=== PATIENT | female | born 1955 | race Caucasian/White ===

== ENCOUNTER 2021-09-20 20:01 | Inpatient (IN) | payer MEDICARE, MEDICAID ==
[2021-09-20] MEDS ORDERED: Labetalol HCl 100 MG/20 ML VIAL ONE (20:20)
[2021-09-20 20:58] LABS: #Basophils 0.1 10x3/uL (0.0-0.2); #Monocytes 1.2 10x3/uL (0.0-1.1); #Neutrophils 8.3 10x3/uL (1.5-8.4); %Basophils 0.7 % (0.0-2.0); %Eosinophils 0.3 % (0.0-6.0); %Lymphocytes 11.2 % (18.0-47.0); %Monocytes 10.7 % (0.0-10.0); %Neutrophils 76.5 % (40.0-75.0); Hemoglobin 12.4 g/dL (12.0-15.5); Mean Corpuscular HGB CONC 33.4 g/dL (32.0-36.0); Mean Corpuscular Hemoglobin 28.7 pg (27.0-33.0); Mean Corpuscular Volume 85.9 fl (81.6-98.3); Mean Platelet Volume 8.8 fl (7.4-10.4); Platelet Count 419 10x3/uL (150-450); RBC Distribution Width 15.7 % (11.5-14.5); Red Blood Cell (RBC) Count 4.32 10x6/uL (3.90-5.03); White Blood Cell (WBC) Count 10.8 10x3/uL (3.5-10.5)
[2021-09-20 21:12] LABS: ALT (SGPT) 52 U/L (8-55); AST (SGOT) 38 U/L (5-34); Albumin 4.2 g/dL (3.4-4.8); Alkaline Phosphatase 86 U/L (40-110); Anion Gap 17 mmol/L (10-20); BUN (Urea Nitrogen) 18 mg/dL (9.8-20.1); Bilirubin, Total 0.2 mg/dL (0.2-1.2); Calc. Creatinine Clearance 0 mL/min (70-130); Calcium 9.1 mg/dL (7.8-10.44); Carbon Dioxide 20 mmol/L (23-31); Chloride 102 mmol/L (98-107); Globulin 3.3 g/dL (2.4-3.5); Glucose 108 mg/dL (80-115); Potassium 3.7 mmol/L (3.5-5.1); Protein, Total 7.5 g/dL (5.8-8.1); Sodium 135 mmol/L (136-145)
[2021-09-20] MEDS ORDERED: hydrALAZINE 20 MG/ML VIAL ONE ×2 (21:18→22:09)
[2021-09-20 21:35] LABS: CKMB 3.4 ng/mL (0-6.6)
[2021-09-20] MEDS ORDERED: Furosemide 40 MG/4 ML VIAL ONE (22:46)
[2021-09-20] MEDS ORDERED: Nitroglycerin 2% Ointment 1 INCH/1 GM Packet ONE (23:35)
[2021-09-20] MEDS ORDERED: Acetaminophen 325 MG TAB PO PRN (23:45)
[2021-09-20] MEDS ORDERED: Ondansetron PF 4 MG/2 ML Vial IVP PRN (23:45)
[2021-09-20] MEDS ORDERED: Senokot S 8.6-50 MG TAB PO PRN (23:45)
[2021-09-20] MEDS ORDERED: Guaifenesin DM 100-10/5 ML UDCUP PO PRN (23:45)
[2021-09-20] MEDS ORDERED: Calcium Carbonate 500 MG ChewTAB PO PRN (23:45)
[2021-09-20] MEDS ORDERED: hydrALAZINE 20 MG/ML VIAL SLOW IVP PRN (23:47)
[2021-09-21] MEDS ORDERED: Meclizine HCl 12.5 MG TAB PO PRN (01:54)
[2021-09-21 01:57] VITALS: BMI 21.0
[2021-09-21] MEDS ORDERED: FLU VACC QS2021-22(65YR UP)/PF 240 MCG/0.7 ML SYRINGE IM ONE (03:30)
[2021-09-21 05:01] LABS: Anion Gap 16 mmol/L (10-20); BUN (Urea Nitrogen) 18 mg/dL (9.8-20.1); Calc. Creatinine Clearance 27 mL/min (70-130); Calcium 8.8 mg/dL (7.8-10.44); Carbon Dioxide 17 mmol/L (23-31); Chloride 106 mmol/L (98-107); Glucose 88 mg/dL (80-115); Magnesium 2.2 mg/dL (1.6-2.6); Potassium 3.7 mmol/L (3.5-5.1); Sodium 135 mmol/L (136-145)
[2021-09-21 05:28] LABS: CKMB 5.8 ng/mL (0-6.6)
[2021-09-21] MEDS: Thiamine 100 MG TAB PO SCH (08:21)
[2021-09-21] MEDS: Sodium Bicarbonate Tab 325 MG TAB PO SCH ×3 (08:21→20:42)
[2021-09-21] MEDS: NIFEdipine XL 60 MG TAB PO SCH ×2 (08:21→21:00)
[2021-09-21] MEDS: Spironolactone 25 MG TAB PO SCH ×2 (08:21→20:42)
[2021-09-21] MEDS: hydrALAZINE 25 MG TAB PO SCH ×3 (08:22→21:01)
[2021-09-21] MEDS: Multivit, Therapeutic 1 TAB PO SCH (08:22)
[2021-09-21] MEDS: Isosorbide Dinitrate 10 MG TAB PO SCH ×2 (08:22→20:42)
[2021-09-21] MEDS: Carvedilol 25 MG TAB PO SCH ×2 (08:22→17:12)
[2021-09-21] MEDS: Enoxaparin Sodium 30 MG/0.3 ML SYRINGE SC SCH (08:22)
[2021-09-21 08:28] LABS: Bilirubin Neg (Negative); Blood, Urine 10 (Negative); Clarity Clear (Clear); Glucose, Urine (Dipstick) Normal (Negative); Ketone, Urine Negative (Negative); Leukocyte Negative (Negative); Nitrite Negative (Negative); Protein, Urine (Dipstick) 500 mg/dl (Neg-Trace); Urobilinogen Normal mg/dL (Less than 2)
[2021-09-21] MEDS: Nicotine 21 MG PATCH TD SCH (08:28)
[2021-09-21 08:32] LABS: Urine Culture Reflex No No
[2021-09-21 08:38] LABS: Bacteria/HPF Rare-Few HPF (None Seen); RBC/HPF 0-3 HPF (0-3); WBC/HPF 0-3 HPF (0-3); Yeast-Budding 1+ HPF (None Seen); Yeast-Hyphae 1+ HPF (None Seen)
[2021-09-21 08:39] LABS: Amphetamine Not Detected (NotDetected); Barbiturates Screen Not Detected (NotDetected); Benzodiazepine Screen Not Detected (NotDetected); Cocaine Metabolite Screen Not Detected (NotDetected); Methadone Not Detected (NotDetected); Methamphetamine Not Detected (NotDetected); Opiate Screen Not Detected (NotDetected); Oxycodone Screen Not Detected (NotDetected); Phencyclidine (PCP) Not Detected (NotDetected); THC/Cannabinoid Screen Not Detected (NotDetected); Tricyclic Screen Not Detected (NotDetected)
[2021-09-21 09:27] LABS: SARS-CoV-2 NAA Rapid Test Not Detected (NotDetected)
[2021-09-21] MEDS ORDERED: Lisinopril 5 MG TAB PO SCH (10:00)
[2021-09-22 04:21] LABS: #Basophils 0.1 10x3/uL (0.0-0.2); #Eosinphils 0.1 10x3/uL (0.0-0.5); #Monocytes 1.1 10x3/uL (0.0-1.1); #Neutrophils 4.5 10x3/uL (1.5-8.4); %Basophils 0.8 % (0.0-2.0); %Eosinophils 1.3 % (0.0-6.0); %Lymphocytes 25.1 % (18.0-47.0); %Monocytes 13.7 % (0.0-10.0); %Neutrophils 58.4 % (40.0-75.0); Hemoglobin 11.1 g/dL (12.0-15.5); Mean Corpuscular HGB CONC 32.8 g/dL (32.0-36.0); Mean Corpuscular Hemoglobin 28.8 pg (27.0-33.0); Mean Corpuscular Volume 87.8 fl (81.6-98.3); Mean Platelet Volume 9.3 fl (7.4-10.4); Platelet Count 391 10x3/uL (150-450); RBC Distribution Width 15.8 % (11.5-14.5); Red Blood Cell (RBC) Count 3.85 10x6/uL (3.90-5.03); White Blood Cell (WBC) Count 7.7 10x3/uL (3.5-10.5)
[2021-09-22 04:47] LABS: Anion Gap 15 mmol/L (10-20); BUN (Urea Nitrogen) 27 mg/dL (9.8-20.1); Calc. Creatinine Clearance 21 mL/min (70-130); Calcium 8.2 mg/dL (7.8-10.44); Carbon Dioxide 22 mmol/L (23-31); Chloride 99 mmol/L (98-107); Glucose 77 mg/dL (80-115); Potassium 3.7 mmol/L (3.5-5.1); Sodium 132 mmol/L (136-145)
[2021-09-22] MEDS: Isosorbide Dinitrate 10 MG TAB PO SCH ×2 (08:37→20:48)
[2021-09-22] MEDS: NIFEdipine XL 60 MG TAB PO SCH ×2 (08:37→20:47)
[2021-09-22] MEDS: Thiamine 100 MG TAB PO SCH (08:37)
[2021-09-22] MEDS: Multivit, Therapeutic 1 TAB PO SCH (08:37)
[2021-09-22] MEDS: Sodium Bicarbonate Tab 325 MG TAB PO SCH ×3 (08:37→20:46)
[2021-09-22] MEDS: Enoxaparin Sodium 30 MG/0.3 ML SYRINGE SC SCH (08:38)
[2021-09-22] MEDS: hydrALAZINE 25 MG TAB PO SCH ×3 (08:38→20:48)
[2021-09-22] MEDS: Carvedilol 25 MG TAB PO SCH ×2 (08:38→16:40)
[2021-09-22] MEDS: Spironolactone 25 MG TAB PO SCH ×2 (08:38→20:46)
[2021-09-22] MEDS: Nicotine 21 MG PATCH TD SCH (08:49)
[2021-09-22] MEDS ORDERED: Labetalol HCl 100 MG/20 ML VIAL SLOW IVP PRN (08:51)
[2021-09-22] MEDS ORDERED: Lisinopril 10 MG TAB PO SCH (09:00)
[2021-09-22] MEDS ORDERED: Lisinopril 5 MG TAB PO SCH (09:00)
[2021-09-22 14:06] LABS: #Basophils 0.1 10x3/uL (0.0-0.2); #Eosinphils 0.1 10x3/uL (0.0-0.5); #Monocytes 0.9 10x3/uL (0.0-1.1); #Neutrophils 4.9 10x3/uL (1.5-8.4); %Basophils 0.9 % (0.0-2.0); %Eosinophils 0.7 % (0.0-6.0); %Lymphocytes 24.8 % (18.0-47.0); %Monocytes 11.7 % (0.0-10.0); %Neutrophils 61.3 % (40.0-75.0); Hemoglobin 11.9 g/dL (12.0-15.5); Mean Corpuscular HGB CONC 32.6 g/dL (32.0-36.0); Mean Corpuscular Hemoglobin 28.7 pg (27.0-33.0); Mean Corpuscular Volume 88.2 fl (81.6-98.3); Mean Platelet Volume 8.9 fl (7.4-10.4); Platelet Count 429 10x3/uL (150-450); RBC Distribution Width 15.8 % (11.5-14.5); Red Blood Cell (RBC) Count 4.14 10x6/uL (3.90-5.03)
[2021-09-22 14:34] LABS: Anion Gap 18 mmol/L (10-20); BUN (Urea Nitrogen) 28 mg/dL (9.8-20.1); Calc. Creatinine Clearance 20 mL/min (70-130); Calcium 8.2 mg/dL (7.8-10.44); Carbon Dioxide 20 mmol/L (23-31); Chloride 98 mmol/L (98-107); Glucose 103 mg/dL (80-115); Magnesium 2.2 mg/dL (1.6-2.6); Potassium 4.1 mmol/L (3.5-5.1); Sodium 132 mmol/L (136-145)
[2021-09-22 14:53] LABS: CKMB 2.6 ng/mL (0-6.6)
[2021-09-22] MEDS: Nitroglycerin 0.4 MG TAB (25 Tab Bottle) SL PRN ×2 (16:00→16:08)
[2021-09-22] MEDS ORDERED: Aspirin 325 mg Enteric Coated Tablet PO SCH (16:00)
[2021-09-23 05:11] LABS: Mean Corpuscular HGB CONC 33.7 g/dL (32.0-36.0); Mean Corpuscular Hemoglobin 28.8 pg (27.0-33.0); Mean Corpuscular Volume 85.6 fl (81.6-98.3); Mean Platelet Volume 8.4 fl (7.4-10.4); Platelet Count 381 10x3/uL (150-450); RBC Distribution Width 15.7 % (11.5-14.5); Red Blood Cell (RBC) Count 4.16 10x6/uL (3.90-5.03); White Blood Cell (WBC) Count 7.2 10x3/uL (3.5-10.5)
[2021-09-23 05:24] LABS: Anion Gap 15 mmol/L (10-20); BUN (Urea Nitrogen) 23 mg/dL (9.8-20.1); Calc. Creatinine Clearance 23 mL/min (70-130); Calcium 8.4 mg/dL (7.8-10.44); Carbon Dioxide 20 mmol/L (23-31); Chloride 101 mmol/L (98-107); Glucose 87 mg/dL (80-115); Potassium 3.7 mmol/L (3.5-5.1); Sodium 132 mmol/L (136-145)
[2021-09-23 07:39] LABS: Band 3 % (5-11); Eosinophils 1 % (0-10); Lymphocytes 11 % (21-51); Monocytes 7 % (0-10); Reactive Lymphocytes 4 % (0-10)
[2021-09-23 07:40] LABS: Neutrophil 74 % (42-75)
[2021-09-23 07:42] LABS: Platelet Morphology Comment Appears Adequate
[2021-09-23 07:43] LABS: MDiff Complete? YES
[2021-09-23 07:44] LABS: RBC Morphology Normal
[2021-09-23] MEDS: Sodium Bicarbonate Tab 325 MG TAB PO SCH ×3 (09:46→20:30)
[2021-09-23] MEDS: NIFEdipine XL 60 MG TAB PO SCH ×2 (09:46→20:29)
[2021-09-23] MEDS: Multivit, Therapeutic 1 TAB PO SCH (09:46)
[2021-09-23] MEDS: hydrALAZINE 25 MG TAB PO SCH ×3 (09:46→20:29)
[2021-09-23] MEDS: Carvedilol 25 MG TAB PO SCH ×2 (09:46→16:28)
[2021-09-23] MEDS: Spironolactone 25 MG TAB PO SCH ×2 (09:46→20:29)
[2021-09-23] MEDS: Isosorbide Dinitrate 10 MG TAB PO SCH ×2 (09:46→20:29)
[2021-09-23] MEDS: Loperamide HCl 2 MG CAP PO PRN ×2 (09:46→20:30)
[2021-09-23] MEDS: Enoxaparin Sodium 30 MG/0.3 ML SYRINGE SC SCH (09:46)
[2021-09-23] MEDS: Thiamine 100 MG TAB PO SCH (09:46)
[2021-09-23] MEDS: Nicotine 21 MG PATCH TD SCH (09:47)
[2021-09-24 04:40] LABS: Hemoglobin 11.6 g/dL (12.0-15.5); Mean Corpuscular HGB CONC 33.5 g/dL (32.0-36.0); Mean Corpuscular Hemoglobin 29.1 pg (27.0-33.0); Mean Corpuscular Volume 86.7 fl (81.6-98.3); Platelet Count 445 10x3/uL (150-450); RBC Distribution Width 15.9 % (11.5-14.5); Red Blood Cell (RBC) Count 3.99 10x6/uL (3.90-5.03); White Blood Cell (WBC) Count 8.2 10x3/uL (3.5-10.5)
[2021-09-24 04:48] LABS: Anion Gap 15 mmol/L (10-20); BUN (Urea Nitrogen) 24 mg/dL (9.8-20.1); Calc. Creatinine Clearance 24 mL/min (70-130); Calcium 8.8 mg/dL (7.8-10.44); Carbon Dioxide 21 mmol/L (23-31); Chloride 105 mmol/L (98-107); Glucose 79 mg/dL (80-115); Potassium 4.5 mmol/L (3.5-5.1); Sodium 136 mmol/L (136-145)
[2021-09-24 07:34] LABS: Band 4 % (5-11); Eosinophils 2 % (0-10); Lymphocytes 19 % (21-51); Monocytes 12 % (0-10)
[2021-09-24 07:35] LABS: Neutrophil 48 % (42-75)
[2021-09-24 07:36] LABS: Platelet Clumps SLIGHT; Platelet Morphology Comment Appears Increased; Reactive Lymphocytes 10 % (0-10)
[2021-09-24 07:37] LABS: MDiff Complete? YES
[2021-09-24 07:38] LABS: RBC Morphology Normal
[2021-09-24] MEDS: Carvedilol 25 MG TAB PO SCH (08:05)
[2021-09-24] MEDS: Enoxaparin Sodium 30 MG/0.3 ML SYRINGE SC SCH (08:05)
[2021-09-24] MEDS: Multivit, Therapeutic 1 TAB PO SCH (08:05)
[2021-09-24] MEDS: hydrALAZINE 25 MG TAB PO SCH ×2 (08:05→15:34)
[2021-09-24] MEDS: Sodium Bicarbonate Tab 325 MG TAB PO SCH ×2 (08:05→15:34)
[2021-09-24] MEDS: NIFEdipine XL 60 MG TAB PO SCH (08:05)
[2021-09-24] MEDS: Thiamine 100 MG TAB PO SCH (08:05)
[2021-09-24] MEDS: Isosorbide Dinitrate 10 MG TAB PO SCH (08:05)
[2021-09-24] MEDS: Spironolactone 25 MG TAB PO SCH (08:05)
[2021-09-24] MEDS: Nicotine 21 MG PATCH TD SCH (08:08)
[2021-09-24 12:18] VITALS: BP 114/57; TEMP 96.8
== END 2021-09-24 17:31 | disposition home or self-care (01) | DRG 305 ==
LOC: CSHERS 20:01 → CSHTELE 23:45 → UNDOADMOB 09-21 01:47 → CSHTELE 09-21 01:47 → OBSVTOIN 09-22 10:35
PROVIDERS: ADMIT Student in an Organized Health Care Education/Training Program; ATTEND Family Medicine
DX: I16.1 Hypertensive emergency (principal); I50.22 Chronic systolic (congestive) heart failure; N18.4 Chronic kidney disease, stage 4 (severe); N17.9 Acute kidney failure, unspecified; E87.1 Hypo-osmolality and hyponatremia; E87.2 Acidosis; F17.210 Nicotine dependence, cigarettes, uncomplicated; F10.11 Alcohol abuse, in remission; R19.7 Diarrhea, unspecified; Z20.822 Contact with and (suspected) exposure to COVID-19; D63.1 Anemia in chronic kidney disease; R77.8 Other specified abnormalities of plasma proteins; I13.0 Hypertensive heart and chronic kidney disease with heart failure and stage 1 through stage 4 chronic kidney disease, or unspecified chronic kidney disease; Z88.2 Allergy status to sulfonamides; Z79.899 Other long term (current) drug therapy; Z90.710 Acquired absence of both cervix and uterus; Z71.6 Tobacco abuse counseling; Z91.19 Patient's noncompliance with other medical treatment and regimen
CPT/HCPCS: 36415; 70450; 70551; 80048; 80053; 80306; 81001; 82553; 83735; 84443; 84484; 85025; 87045; 87046; 87324; 87427; 87449; 93005; 93010; 96372; 96374; 96375; 96376; G0378; J0360; J1650; J1940; U0002